=== PATIENT | female | born 1990 | race Caucasian/White ===

== ENCOUNTER → 2024-02-27 | Outpatient (CLI) | payer OTHER ==
[~2024-02-27] MED LIST: CLAR10CA3 PO; DULO1CAP5; OMEP-173; OXYB15TA14; Oxybutynin Chloride PO; XARE10TA PO; XARE20TA
[2024-02-27 10:37] LABS: HEMATOCRIT 35.6 % (36.0-47.0); HEMOGLOBIN 10.8 g/dl (12.0-15.5); MEAN CORPUSCULAR HEMOGLOBIN 21.9 pg (27.0-33.0); MEAN CORPUSCULAR HGB CONC 30.3 g/dl (32.0-36.5); MEAN CORPUSCULAR VOLUME 72.1 fl (80.0-96.0); PLATELET COUNT, AUTOMATED 372 10^3/uL (150-450); RED BLOOD COUNT 4.94 10^6/uL (4.00-5.40); WHITE BLOOD COUNT 9.9 10^3/uL (4.0-10.0)
[2024-02-27 11:05] LABS: FREE T4 1.53 NG/DL (0.89-1.76); THYROID STIMULATING HORMONE 3.304 uIU/ML (0.55-4.78)
[2024-02-27 11:06] LABS: FERRITIN 6.1 NG/ML (7.3-270.7)
[2024-02-29 11:43] LABS: TRANSFERRIN 385 mg/dL (188-341)
== END ==
LOC: M PLALAB 08:14
PROVIDERS: ATTEND Internal Medicine Hematology
DX: D50.9 Iron deficiency anemia, unspecified (principal)

== ENCOUNTER 2024-03-15 13:14 | Outpatient (CLI) | payer OTHER ==
[~2024-03-15] VITALS: Ht 165.1 cm; Wt 96.5 kg
[~2024-03-15 13:14] MED LIST changes: +ALBUTEROL SULFATE 2.5MG/0.5ML INH NEB SOLN INH PRN; +EPINEPHrine INJ 1 MG/ML 1ML AMP IM PRN; +diphenhydrAMINE 50MG/ML VIAL IV PRN; +methylPREDNISolone 125MG 2ML VIAL IV PRN
[2024-03-15 14:00] VITALS: BP 120/68; O2SAT 100
[2024-03-15] MEDS ORDERED: NS 1,000 ML IV SCH (14:00)
[2024-03-15] MEDS: IRON SUCROSE 300 MG in NS 250 ML OVER 90 MIN. IV ONE (14:17)
[2024-03-15 16:15] VITALS: BP 114/68; O2SAT 96
== END 2024-03-15 16:15 ==
LOC: M INFU 13:14
PROVIDERS: ATTEND Internal Medicine Hematology
DX: D50.9 Iron deficiency anemia, unspecified (principal)
CPT/HCPCS: 96365; J1756

== ENCOUNTER 2024-03-22 13:50 | Outpatient (CLI) | payer OTHER ==
[~2024-03-22] VITALS: Ht 165.1 cm; Wt 96.3 kg
[2024-03-22 13:50] VITALS: BP 118/75; O2SAT 95
[~2024-03-22 13:50] MED LIST changes: +NS 1,000 ML IV SCH
[2024-03-22] MEDS: IRON SUCROSE 300 MG in NS 250 ML IV ONE (13:56)
[2024-03-22 15:38] VITALS: BP 101/65; O2SAT 99
== END 2024-03-22 15:40 ==
LOC: M INFU 13:50
PROVIDERS: ATTEND Internal Medicine Hematology
DX: D50.9 Iron deficiency anemia, unspecified (principal)
CPT/HCPCS: 96365; 96366; J1756

== ENCOUNTER 2024-03-29 13:30 | Outpatient (CLI) | payer OTHER ==
[~2024-03-29] VITALS: Ht 165.1 cm; Wt 96.3 kg
[2024-03-29 13:42] VITALS: BP 114/74; O2SAT 98
[2024-03-29] MEDS: IRON SUCROSE 300 MG in NS 250 ML IV ONE (14:04)
[2024-03-29 15:45] VITALS: BP 107/62; O2SAT 100
== END 2024-03-29 15:45 ==
LOC: M INFU 13:30
PROVIDERS: ATTEND Internal Medicine Hematology
DX: D50.9 Iron deficiency anemia, unspecified (principal)
CPT/HCPCS: 96365; J1756

== ENCOUNTER → 2024-05-30 | Outpatient (CLI) | payer OTHER ==
[~2024-05-30] MED LIST changes: -ALBUTEROL SULFATE 2.5MG/0.5ML INH NEB SOLN INH PRN; -EPINEPHrine INJ 1 MG/ML 1ML AMP IM PRN; -NS 1,000 ML IV SCH; -diphenhydrAMINE 50MG/ML VIAL IV PRN; -methylPREDNISolone 125MG 2ML VIAL IV PRN
[2024-05-30 12:54] LABS: BASO # 0.1 10^3/uL (0.0-0.2); BASO % 0.9 % (0.0-1.0); EOS # 0.2 10^3/uL (0.0-0.5); EOS % 2.5 % (0.0-3.0); HEMOGLOBIN 13.5 g/dl (12.0-15.5); LYMPH # 2.9 10^3/uL (1.5-5.0); LYMPH % 44.2 % (24.0-44.0); MEAN CORPUSCULAR HEMOGLOBIN 27.1 pg (27.0-33.0); MEAN CORPUSCULAR HGB CONC 31.4 g/dl (32.0-36.5); MEAN CORPUSCULAR VOLUME 86.2 fl (80.0-96.0); MONO # 0.3 10^3/uL (0.0-0.8); MONO % 5.1 % (2.0-8.0); NEUTROPHILS # 3.1 10^3/uL (1.5-8.5); NEUTROPHILS % 47.1 % (36.0-66.0); PLATELET COUNT, AUTOMATED 303 10^3/uL (150-450); RED BLOOD COUNT 4.99 10^6/uL (4.00-5.40); WHITE BLOOD COUNT 6.5 10^3/uL (4.0-10.0)
== END ==
LOC: M PLALAB 10:21
PROVIDERS: ATTEND Internal Medicine Hematology
DX: D68.61 Antiphospholipid syndrome (principal); D50.9 Iron deficiency anemia, unspecified